=== PATIENT | female | born 1965 | race Caucasian/White ===

== ENCOUNTER 2024-11-28 07:13 | Emergency (ER) | payer BC, MEDICARE ==
[~2024-11-28] VITALS: Ht 175.3 cm; Wt 103.0 kg
[~2024-11-28 07:13] MED LIST: ESTR1TAB17 PO; PANT40TA PO; VENL150C5 PO
--- NOTE | 2024-11-28 08:59 | HMCIMG ---
EXAM: CR Lumbar Spine, 3 View. CLINICAL HISTORY: back pain COMPARISON: None provided. FINDINGS: BONES: No acute fracture or aggressive appearing osseous lesion. ALIGNMENT: Straightening of the expected lordotic curvature of the lumbar spine. May reflect paraspinal muscular spasm. Clinically correlate. No significant scoliosis. DISCS / DEGENERATIVE CHANGES: Mild degenerative disc space narrowing L5-S1. Otherwise, The disc spaces are preserved. SOFT TISSUES: The soft tissues are unremarkable. IMPRESSION: Straightening of the expected lordotic curvature. Consider paraspinal muscular spasm. Mild degenerative disc space narrowing L5-S1. If there are concerns for lumbar radiculopathy, MRI exam may be useful for more complete evaluation. /[place]
[2024-11-28] MEDS: LIDOCAINE 5% TOPICAL PATCH TP ONE (09:08)
[2024-11-28] MEDS ORDERED: NAPR-1196 PO (09:39)
[2024-11-28] MEDS ORDERED: CYCL10TA16 PO (09:39)
--- NOTE | 2024-11-28 09:39 | ERN ---
ED Note History of Present Illness Stated Complaint: RT SCIATICA PAIN Chief Complaint: Lower Extremity Pain/Injury Time Seen by MD: 07:27 Dictation: 59-year-old female presenting to the emergency department with right low back pain radiating to her right leg worse with movement and touch. Patient has no chest pain shortness of breath or abdominal pain. Allergies: Coded Allergies: Sulfa (Sulfonamide Antibiotics) (Verified Allergy, Unknown, 06/27/21) albuterol (Verified Allergy, Unknown, 06/27/21) nitrofurantoin (Verified Allergy, Unknown, 06/27/21) rosiglitazone (Verified Allergy, Unknown, 06/27/21) Home Meds Reported Medications Estradiol (Estradiol) 1 Mg Tablet, 1 MG PO DAILY, TAB 06/26/21 Pantoprazole Sodium (Protonix) 40 Mg Tablet.dr, 40 MG PO DAILY, TAB 06/26/21 Venlafaxine HCl (Effexor Xr) 150 Mg Cap.er.24h, 150 MG PO DAILY, CAPSULE.DR 06/26/21 Past Medical History Past Medical History: Anxiety, Depression, Other Additional Past Medical Hx: TREMORS Surgical History: Hysterectomy, Cholecystectomy, BTL Surgical History Other: BACK SURGERY Review of System Dictation Constitutional: Negative for fever,chills, and weight loss Eyes: Negative for injury, pain,redness, and discharge ENT: Negative for injury,pain or swelling Cardiovascular: Negative for chest pain, palpitations, and edema Respiratory: Negative for shortness of breath, cough, and wheezing, Abdomen/GI: Negative for abdominal pain, nausea, vomiting, diarrhea, and constipation Back: Negative for injury and pain : Negative for injury, bleeding and discharge MS/Extremity per HPI Skin: Negative for rash, and discoloration Neuro: Negative for headache, weakness, numbness, tingling, and seizure Psych: Negative for suicide ideation, homicidal ideation, and hallucinations Initial Vital Sign VS Vital Signs Date Time Temp Pulse Resp B/P (MAP) Pulse Ox O2 Delivery O2 Flow Rate FiO2 11/28/24 07:14 97.9 99 16 136/60 96 Room Air 0 Physical Exam Dictation General: awake, alert, appears uncomfortable Head/Face: Normocephalic, atraumatic Eyes: PERRL, EOMI, vision at baseline ENT: oral cavity clear, TMs clear, no signs of infection Neck: Trachea midline, supple, no nuchal rigidity Cardiovascular: RRR, normal S1/S2, No MRGs, no JVD Respiratory: CTAB, no respiratory distress, No rales or wheezes Abdomen: Soft, non-tender, non-distended, normal bowel sounds, no guarding or rebound. Skin: Warm, dry, normal turgor, no rash MS/Extremity: Pulses equal, no cyanosis, neurovascular intact, FROM, right straight leg positive for pain Neuro: COAx4, GCS 15, strength 5/5, CN 2-12 intact, normal cerebellar exam, normal gait, Psych: Normal behavior, mood, and affect normal ED Course ED Course Orders Procedure Category Date Status Time Lumbar Spine 2-3vws RAD 11/28/24 Resulted 07:36 Diazepam 5 Mg/Ml 2 Ml PHA 11/28/24 Complete Syg (Valium 5 Mg/M 08:00 Ketorolac PHA 11/28/24 Complete Tromethamine 30mg/Ml 08:00 Morphine 4mg Syg PHA 11/28/24 Complete (Morphine 4mg Syg) 09:00 Lidocaine (Lidoderm PHA 11/28/24 Complete Patch 5%) 09:00 Current Medications Medications (Trade) Dose Ordered Sig/Ervin Route PRN Reason Start Time Stop Time Status Last Admin Dose Admin Diazepam (VALium 5 MG/ML 2 ML SYG) 5 mg ONCE ONCE IM 11/28/24 08:00 11/28/24 08:01 DC 11/28/24 08:12 Ketorolac Tromethamine (toRADol) 30 mg ONCE ONCE IM 11/28/24 08:00 11/28/24 08:01 DC 11/28/24 08:18 Lidocaine (Lidoderm Patch 5%) 1 patch ONCE ONCE TP 11/28/24 09:00 11/28/24 09:01 DC 11/28/24 09:08 Morphine Sulfate (morPHINE 4MG SYG) 4 mg ONCE ONCE IM 11/28/24 09:00 11/28/24 09:01 DC 11/28/24 09:08 Vital Signs Date Time Temp Pulse Resp B/P (MAP) Pulse Ox O2 Delivery O2 Flow Rate FiO2 11/28/24 07:14 97.9 99 16 136/60 96 Room Air 0 Medical Decision Making MDM MDM: Differential diagnosis: Rationale: Tests considered and ordered secondary to shared decision making include: Previous outside records reviewed: Old ER visits. Risk of complication and/or morbidity or mortality of patient management: None Medications-Per medication reconciliation Need for hospitalization: Patient does not meet criteria for hospitalization. Need for emergency major/minor surgery: No There are no social concerns with this patient. Prescription drug management Prescriptions will include symptomatic care Patient's prior external medical records from other ER visits were reviewed by me as indicated. Prior testing and results from previous visits were reviewed. Prior tests were taken into account with medical decision making and resource utilization, independent historian/historians were used to obtain complete medical history. I independently interpreted the test that were performed, results were reviewed by me and considered findings on radiology if ordered. Medical management and examination interpretation discussions were had by me with other qualified healthcare professionals as indicated for the patient's care. 59-year-old female with right side and sciatica no fever risk factors for abscess, no urinary retention or bowel incontinence, x-ray stable symptoms DX & DISP Disposition: Discharge Departure Impression: Primary Impression: Lumbar radiculopathy, acute Condition: Stable Scripts Cyclobenzaprine HCl (Flexeril) 10 Mg Tab 10 MG PO TID for muscle sstiffness, #14 TAB 0 Refills Prov: LEATHA FAARH MD 11/28/24 Naproxen (Naproxen) 250 Mg Tablet 250 MG PO BID for 5 Days, #10 TAB Prov: LEATHA FARAH MD 11/28/24 Referrals: [facility] BIOMEDICAL ENGINEERING PROFESSOR (PCP) LEATHA FARAH MD Nov 28, 2024 09:39
[2024-11-28 09:43] VITALS: BP 131/67; PULSE 90; RESP 16; TEMP 97.9; O2SAT 97
== END 2024-11-28 09:51 | disposition home or self-care (01) ==
LOC: EDH 07:13
DX: M54.16 Radiculopathy, lumbar region (principal); F32.A Depression, unspecified; F41.9 Anxiety disorder, unspecified; Z79.899 Other long term (current) drug therapy; Z88.2 Allergy status to sulfonamides; Z88.1 Allergy status to other antibiotic agents; Z88.8 Allergy status to other drugs, medicaments and biological substances; Z90.710 Acquired absence of both cervix and uterus; Z90.49 Acquired absence of other specified parts of digestive tract; Z98.890 Other specified postprocedural states
CPT/HCPCS: 99284; 72100; 96372 ×3; J1885; J3360; J2270

== ENCOUNTER 2024-12-01 12:18 | Emergency (ER) | payer BC, MEDICARE ==
[~2024-12-01] VITALS: Ht 175.3 cm; Wt 103.0 kg
[~2024-12-01 12:18] MED LIST changes: +CYCL10TA16 PO; +NAPR-1196 PO
--- NOTE | 2024-12-01 12:25 | ERN ---
ED Note History of Present Illness Stated Complaint: LEG PAIN Chief Complaint: Lower Extremity Pain/Injury Time Seen by MD: 12:21 Dictation: PATIENT IS A 59-YEAR-OLD FEMALE COMING IN FROM HOME WITH COMPLAINTS OF RIGHT CALF PAIN SWELLING TENDERNESS ONSET TWO DAYS PRIOR TO ARRIVAL. NO FEVER NO CHILLS NO SOB. SHE STATES SHE WAS HERE LAST WEEK FOR BACK PAIN AND WAS TREATED THEN WENT TO A CHIROPRACTOR ON THURSDAY AND MANIPULATED HER BACK. HE HAS SHE STATES THE PAIN IN HER BACK IS BETTER BEEN NOW SHE IS HAVING THE CALF PAIN. SHE STATES WHEN SHE SPOKE TO HER CHIROPRACTOR, HE RECOMMENDED A DOPPLER STUDY TO RULE OUT DVT. SHE STATES SHE CALLED HER PRIMARY CARE DOCTOR THIS MORNING WHO ADVISED HER TO COME TO THE EMERGENCY ROOM. NO HISTORY OF DVT'S. SHE TOOK A SINGLE TYLENOL WITH CODEINE AT 09:00. DISTAL NEUROVASCULAR CMS INTACT AFEBRILE. Allergies: Coded Allergies: Sulfa (Sulfonamide Antibiotics) (Verified Allergy, Unknown, 06/27/21) albuterol (Verified Allergy, Unknown, 06/27/21) nitrofurantoin (Verified Allergy, Unknown, 06/27/21) rosiglitazone (Verified Allergy, Unknown, 06/27/21) Home Meds Active Scripts Cyclobenzaprine HCl (Flexeril) 10 Mg Tab, 10 MG PO TID for muscle sstiffness, #14 TAB 0 Refills Prov:LEATHA FARAH MD 11/28/24 Naproxen (Naproxen) 250 Mg Tablet, 250 MG PO BID for 5 Days, #10 TAB Prov:LEATHA FARAH MD 11/28/24 Reported Medications Estradiol (Estradiol) 1 Mg Tablet, 1 MG PO DAILY, TAB 06/26/21 Pantoprazole Sodium (Protonix) 40 Mg Tablet.dr, 40 MG PO DAILY, TAB 06/26/21 Venlafaxine HCl (Effexor Xr) 150 Mg Cap.er.24h, 150 MG PO DAILY, CAPSULE. 06/26/21 Past Medical History Past Medical History: Anxiety, Depression, Other Additional Past Medical Hx: TREMORS Surgical History: Hysterectomy, Cholecystectomy, BTL Surgical History Other: BACK SURGERY History: Not Applicable RN Note Reviewed/Agreed w/PFSH: Yes Review of System Dictation CONSTITUTIONAL: NEGATIVE EXCEPT FOR HPI HEAD/FACE: NEGATIVE EXCEPT FOR HPI EENT: NEGATIVE EXCEPT FOR HPI RESPIRATORY: NEGATIVE EXCEPT FOR HPI GASTROINTESTINAL/ABDOMINAL: NEGATIVE EXCEPT FOR HPI GENITOURINARY: NEGATIVE EXCEPT FOR HPI MUSCULOSKELETAL: NEGATIVE EXCEPT FOR HPI RIGHT POSTERIOR CALF PAIN SWELLING INTEGUMENTARY: NEGATIVE EXCEPT FOR HPI NEUROLOGICAL/PSYCH: NEGATIVE EXCEPT FOR HPI HEMATOLOGIC/LYMPHATIC: NEGATIVE EXCEPT FOR HPI ALL SYSTEMS NEGATIVE, EXCEPT NOTED ABOVE. 13 POINT REVIEW OF SYSTEMS ASSESSED AND ALL NEGATIVE EXCEPT FOR ABOVE. Initial Vital Sign VS Vital Signs Date Time Temp Pulse Resp B/P (MAP) Pulse Ox O2 Delivery O2 Flow Rate FiO2 12/01/24 12:20 98.8 86 18 151/80 96 Room Air 0 12/01/24 12:23 21 Physical Exam Dictation VITAL SIGNS REVIEWED GENERAL APPEARANCE: ALERT, ORIENTED X 3, MODERATE ACUTE DISTRESS, WELL DEVELOPED, NOURISHED. HEAD AND FACE: NON-TRAUMATIC. EYES: PERRL, PINK CONJUNCTIVAS, EYELID NO TRAUMA, ANTERIOR CHAMBER WITH ARCUS SENILIS. EARS: PINNAS INTACT AND NO SIGNS OF TRAUMA OR ERYTHEMA EAR CANALS CLEAR AND NO DISCHARGE TM NO ERYTHEMA NOSE: NO DISCHARGE, NO BLEEDING. OROPHARYNX: MOUTH NORMAL, TONGUE PINK, PHARYNX CLEAR,NO ERYTHEMA, TONSILS NO EXUDATES, NO ABSCESSES NOTED, MUCOUS MEMBRANE MOIST NECK: SUPPLE, NON-TENDER, NO THYROMEGALY, NO MASSES, NO JVD, NO BRUITS BREAST:DEFERRED CHEST:NO TENDERNESS, NO CREPITUS, NO PARADOXICAL MOVEMENT, NO RETRACTIONS LUNGS:CLEAR, WELL-VENTILATED, SYMMETRIC, NO RALES, NO WHEEZING, NO RHONCHI, NO STRIDOR, GOOD BREATH SOUNDS BILATERALLY HEART: REGULAR RATE, REGULAR RHYTHM, NO MURMUR, NO GALLOPS VASCULAR: NO PERIPHERAL EDEMA, ABDOMEN: SOFT, POSITIVE BOWEL SOUNDS, NONDISTENDED, NO GUARDING, NONTENDER, NO REBOUND, NO MASSES NO HEPATOMEGALY, NO SPLENOMEGALY, NO ZARATE'S SIGN, NO HERNIAS. RECTAL: DEFERRED GENITAL: DEFERRED NEUROLOGICAL: NORMAL SPEECH, MOTOR FUNCTION INTACT, SENSORY FUNCTION INTACT MUSCULOSKELETAL: NECK NONTENDER, FULL RANGE OF MOTION, BACK NONTENDER, FULL RANGE OF MOTION, EXTREMITIES: RIGHT POSTERIOR CALF SWELLING AND TENDERNESS. NO ERYTHEMA DISTAL NEUROVASCULAR CMS INTACT. SKIN: COLOR PINK, DRY, NO TURGOR, NO RASH, NO LACERATIONS, NO ABRASIONS, NO CONTUSIONS. LYMPHATIC: DEFERRED Results (Laboratory/Radiology) Laboratory/Radiology Laboratory Tests Test 8/28/25 12:33 White Blood Count 9.2 K/uL (4.8-10.8) Red Blood Count 4.52 MIL/uL (4.00-5.50) Hemoglobin 13.2 g/dL (12.0-16.0) Hematocrit 41.4 % (36-48) Mean Corpuscular Volume 91.6 fL (79-99) Mean Corpuscular Hemoglobin 29.2 pg (27.0-33.0) Mean Corpuscular Hemoglobin Concent 31.9 g/dL (32.0-36.0) L Red Cell Distribution Width 12.8 % (11.0-15.5) Platelet Count 299 K/uL (130-400) Mean Platelet Volume 9.1 fL (7.5-10.5) Immature Granulocyte % (Auto) 0.4 % (0-1) Neutrophils (%) (Auto) 66.4 % (40.0-77.0) Lymphocytes (%) (Auto) 23.6 % (21.0-51.0) Monocytes (%) (Auto) 6.5 % (3.0-13.0) Eosinophils (%) (Auto) 2.4 % (0.0-8.0) Basophils (%) (Auto) 0.7 % (0.0-5.0) Neutrophils # (Auto) 6.1 K/uL (1.8-7.7) Lymphocytes # (Auto) 2.2 K/uL (1.0-4.8) Monocytes # (Auto) 0.6 K/uL (0.1-1.0) Eosinophils # (Auto) 0.22 K/uL (0.00-0.70) Basophils # (Auto) 0.06 K/uL (0.00-0.20) Absolute Immature Granulocyte (auto 0.04 K/uL (0-1) Nucleated Red Blood Cells 0.0 % (0.0-0.19) Sodium Level 137 mmol/L (136-145) Potassium Level 4.2 mmol/L (3.5-5.1) Chloride Level 101 mmol/L (101-111) Carbon Dioxide Level 31 mmol/L (21-32) Blood Urea Nitrogen 13 mg/dL (7-18) Creatinine 0.8 mg/dL (0.5-1.0) Glomerular Filtration Rate Calc 85 mL/min (>90) Random Glucose 96 mg/dL (70-105) Total Calcium 8.9 mg/dL (8.5-10.1) US VENOUS DOPPLER UNILATERAL REASON: RIGHT POSTERIOR CALF SWELLING TENDERNESS COMPARISON: None Technique: Right venous doppler ultrasound was performed with spectral analysis and color flow imaging technique. FINDINGS: There is a normal appearance of the common femoral, deep femoral, the profunda femoris and popliteal veins. Proximal calf veins appear normal as well. There is normal response to compression and augmentation. There is no evidence of deep venous thrombosis. IMPRESSION: Normal right lower extremity venous Doppler ultrasound. Labs Reviewed?: Yes ED Course ED Course Orders Procedure Category Date Status Time Us Venous Doppler US 12/01/24 Resulted Unilateral 12:21 Acetaminophen With PHA 12/01/24 Complete Codeine (Tylenol-Code 12:30 Basic Metabolic Panel LAB 12/01/24 Complete 12:21 Cbc With Differential LAB 12/01/24 Complete 12:21 Current Medications Medications (Trade) Dose Ordered Sig/Ervin Route PRN Reason Start Time Stop Time Status Last Admin Dose Admin Acetaminophen/ Codeine Phosphate (TYLenol-coDEINE TAB) 2 tab ONCE ONCE PO 12/01/24 12:30 12/01/24 12:31 DC 12/01/24 13:43 Vital Signs Date Time Temp Pulse Resp B/P (MAP) Pulse Ox O2 Delivery O2 Flow Rate FiO2 12/01/24 13:39 98.8 82 18 142/74 96 Room Air* 0 21 12/01/24 12:23 98.8 86 18 151/80 96 Room Air* 0 21 12/01/24 12:20 98.8 86 18 151/80 96 Room Air 0 1425/PAIN MARKEDLY IMPROVED AFTER TYLENOL WITH CODEINE. SHE IS AWARE HER LABS ARE UNREMARKABLE AND DOPPLER ULTRASOUND IS NEGATIVE SEE HER PRIMARY CARE DOCTOR FOR MANAGEMENT OF HER MUSCULOSKELETAL PAIN. Medical Decision Making MDM MDM: DIFFERENTIAL DIAGNOSIS: DVT/MUSCULOSKELETAL PAIN/ELECTROLYTE IMBALANCE/DEHYDRATION/INFECTION RATIONALE: TESTS CONSIDERED AND ORDERED SECONDARY TO SHARED DECISION MAKING INCLUDE: DOPPLER/LABS PREVIOUS OUTSIDE RECORDS REVIEWED: OLD ER VISITS. RISK OF COMPLICATION AND/OR MORBIDITY OR MORTALITY OF PATIENT MANAGEMENT: NONE MEDICATIONS-PER MEDICATION RECONCILIATION NEED FOR HOSPITALIZATION: PATIENT DOES NOT MEET CRITERIA FOR HOSPITALIZATION. NO NEED FOR EMERGENCY MAJOR/MINOR SURGERY: NO THERE ARE NO SOCIAL CONCERNS WITH THIS PATIENT. PRESCRIPTION DRUG MANAGEMENT IBUPROFEN PRESCRIPTIONS WILL INCLUDE SYMPTOMATIC CARE PATIENT'S PRIOR EXTERNAL MEDICAL RECORDS FROM OTHER ER VISITS WERE REVIEWED BY ME INDICATED. PRIOR TESTING AND RESULTS FROM PREVIOUS VISITS WERE REVIEWED. PRIOR TESTS WERE TAKEN INTO ACCOUNT WITH MEDICAL DECISION MAKING AND RESOURCE UTILIZATION, INDEPENDENT HISTORIAN/HISTORIANS WERE USED TO OBTAIN COMPLETE MEDICAL HISTORY. I INDEPENDENTLY INTERPRETED THE TEST THAT WERE PERFORMED, RESULTS WERE REVIEWED BY ME AND CONSIDERED FINDINGS ON RADIOLOGY IF ORDERED. MEDICAL MANAGEMENT AND EXAMINATION INTERPRETATION DISCUSSIONS WERE HAD BY ME WITH OTHER QUALIFIED HEALTHCARE PROFESSIONALS INDICATED FOR THE PATIENT'S CARE. DX & DISP Disposition: Discharge Departure Impression: Primary Impression: Right calf pain Condition: Stable Scripts Ibuprofen (Ibuprofen 800 mg Tab) 800 Mg Tab 800 MG PO Q8H PRN for fever or pain, #30 TAB 0 Refills Prov: ANNALISE AGGARWAL NP 12/01/24 Additional Instructions: FOLLOW-UP WITH PRIMARY CARE PROVIDER IN 1 TO 2 DAYS. TAKE MEDICATIONS DIRECTED HERE IN THE EMERGENCY ROOM. OKAY TO CONTINUE HOME MEDICATIONS UNLESS OTHERWISE DISCUSSED DURING YOUR VISIT IN THE EMERGENCY ROOM TODAY. RETURN TO YOUR NEAREST EMERGENCY ROOM IF SYMPTOMS WORSEN OR IF THERE IS NO IMPROVEMENT. CALL 911 IF YOU NEED IMMEDIATE ASSISTANCE. TAKE TYLENOL OR MOTRIN [id number] NEEDED AND IF NO CONTRAINDICATIONS ARE PRESENT. INCREASE ORAL HYDRATION. A WOUND CULTURE OR URINE CULTURE WAS ORDERED HERE IN THE EMERGENCY ROOM DEPARTMENT PLEASE FOLLOW-UP WITH PRIMARY CARE PROVIDER AND ADVISE THEM TO GET REPEAT PORTS FROM OUR FACILITY. IF YOU HAD ANY JIMMY WRAP/SPLINTS THAT WERE APPLIED HERE, PLEASE DO NOT REMOVE THEM UNTIL YOU SEE YOUR PRIMARY CARE OR SPECIALTY. TAKE IBUPROFEN NEEDED FOR PAIN WITH FOOD. DIET AND ACTIVITY TOLERATED AND FOLLOW BACK UP WITH THE YOUR PRIMARY CARE DOCTOR FOR CONTROL OF YOUR MUSCLE PAIN. Referrals: PEDRO LIVINGST[facility] NP (PCP) Time of Disposition: 14:25 I have reviewed the case, and I agree with, Diagnosis and Plan ANNALISE AGGARWAL NP Dec 01, 2024 12:25
[2024-12-01 12:43] LABS: IMMATURE GRANULOCYTE ABSOLUTE 0.04 K/uL (0-1); NUCLEATED RED BLOOD CELLS 0.0 % (0.0-0.19); PLATELET COUNT (AUTO) 299 K/uL (130-400); RED BLOOD CELL COUNT(AUTO) 4.52 MIL/uL (4.00-5.50); RED CELL DISTRIBUTION WIDTH 12.8 % (11.0-15.5); WHITE BLOOD COUNT (AUTO) 9.2 K/uL (4.8-10.8)
[2024-12-01 12:56] LABS: CREATININE 0.8 mg/dL (0.5-1.0); GLOMERULAR FILTR. RATE CALC 85.0 mL/min (>90); GLUCOSE,RANDOM 96.0 mg/dL (70-105); SODIUM SERUM 137.0 mmol/L (136-145); UREA NITROGEN, BLOOD 13.0 mg/dL (7-18)
[2024-12-01 13:39] VITALS: BP 142/74; PULSE 82; RESP 18; TEMP 98.7; O2SAT 96
--- NOTE | 2024-12-01 13:47 | HMCIMG ---
US VENOUS DOPPLER UNILATERAL REASON: RIGHT POSTERIOR CALF SWELLING TENDERNESS COMPARISON: None Technique: Right venous doppler ultrasound was performed with spectral analysis and color flow imaging technique. FINDINGS: There is a normal appearance of the common femoral, deep femoral, the profunda femoris and popliteal veins. Proximal calf veins appear normal as well. There is normal response to compression and augmentation. There is no evidence of deep venous thrombosis. IMPRESSION: Normal right lower extremity venous Doppler ultrasound.
[2024-12-01] MEDS ORDERED: IBUP-2077 PO (14:25)
== END 2024-12-01 14:33 | disposition home or self-care (01) ==
LOC: EDH 12:18
DX: M79.661 Pain in right lower leg (principal); F41.9 Anxiety disorder, unspecified; F32.A Depression, unspecified; Z79.818 Long term (current) use of other agents affecting estrogen receptors and estrogen levels; Z79.899 Other long term (current) drug therapy; Z88.1 Allergy status to other antibiotic agents; Z88.2 Allergy status to sulfonamides; Z90.49 Acquired absence of other specified parts of digestive tract; Z90.710 Acquired absence of both cervix and uterus
CPT/HCPCS: 36415; 80048; 85025; 93971; 99284